=== PATIENT | female | born 1985 | race Caucasian/White ===

== ENCOUNTER 2023-12-01 08:43 | Emergency (ER) | payer BC ==
[~2023-12-01] VITALS: Ht 160 cm; Wt 63.5 kg
[2023-12-01 08:56] VITALS: BP 105/70; TEMP 97.9; O2SAT 99
[2023-12-01 09:34] LABS: APPEARANCE,URINE CLEAR (CLEAR); BILIRUBIN,URINE NEGATIVE (NEGATIVE); BLOOD, URINE 2+ Ery/uL (NEGATIVE); COLOR,URINE YELLOW (YELLOW); KETONES,URINE NEGATIVE (NEGATIVE); LEUKOCYTE ESTERASE ,URINE 2+ (NEGATIVE); NITRITE, URINE POSITIVE (NEGATIVE); PROTEIN,URINE NEGATIVE (NEGATIVE); UGLUCOSE NEGATIVE (NEGATIVE)
[2023-12-01 09:40] LABS: PREGNANCY TEST URINE QUAL NEGATIVE (NEGATIVE)
[2023-12-01 09:49] LABS: SQUAMOUS EPITHELIAL CELL,UR Few /HPF (None Seen)
[2023-12-01 09:50] LABS: ADD URINE CULTURE YES; BACTERIA,URINE Many /HPF (None Seen); WBC,URINE 21-50 /HPF (0-3)
[2023-12-01] MEDS ORDERED: CEFTRIAXONE 1GM BAG (ER ONLY) 50 ML IV ONE (10:11)
[2023-12-01] MEDS ORDERED: KETOROLAC TROMETHAMINE 15 MG/ML VIAL ONE (10:11)
[2023-12-01] MEDS ORDERED: IBUP-1955 PO (10:12)
[2023-12-01] MEDS ORDERED: CEFD300C3 PO (10:12)
[2023-12-01] MEDS: KETOROLAC TROMETHAMINE 15 MG/ML VIAL IV ONE (10:12)
[2023-12-01] MEDS: IV NS 0.9% 1,000 ML BAG IV ONE (10:15)
[2023-12-01] MEDS: CEFTRIAXONE 1 G in IV D5W 50 ML IV ONE (10:15)
== END 2023-12-01 10:50 | disposition home or self-care (01) ==
LOC: ER 09:11
DX: N39.0 Urinary tract infection, site not specified (principal); R30.0 Dysuria; R10.2 Pelvic and perineal pain; R39.15 Urgency of urination; F12.10 Cannabis abuse, uncomplicated; F15.10 Other stimulant abuse, uncomplicated; Z90.49 Acquired absence of other specified parts of digestive tract; Z90.89 Acquired absence of other organs; Z90.710 Acquired absence of both cervix and uterus; Z60.2 Problems related to living alone
CPT/HCPCS: 99284; 96365; 96375; 87086; 84703; 81001; J7030; J0696; J1885